=== PATIENT | male | born 1990 | race Caucasian/White ===

== ENCOUNTER → 2017-07-08 | Outpatient (CLI) | payer BC ==
[2017-07-08 16:34] LABS: ADJUSTED CALCIUM 9.1 mg/dL (8.4-10.2); ALBUMIN 4.9 gm/dL (3.5-5.0); BILIRUBIN,TOTAL 1.3 mg/dL (0.0-1.0); CALCIUM 9.8 mg/dL (8.4-10.2); CHOLESTEROL RISK RATIO 2.5; CREATININE, serum 0.82 mg/dL (0.66-1.25); POTASSIUM 4.2 mmol/L (3.4-5.0); TOTAL PROTEIN 7.7 gm/dL (6.4-8.2)
== END ==
LOC: COL.LAB 10:33
PROVIDERS: Nurse Practitioner
DX: Z00.00 Encounter for general adult medical examination without abnormal findings (principal)

== ENCOUNTER → 2018-06-20 | Outpatient (CLI) | payer BC ==
[2018-06-20 17:29] LABS: CALCIUM 9.4 mg/dL (8.4-10.2); CHOLESTEROL RISK RATIO 2.8; CREATININE, serum 0.81 mg/dL (0.66-1.25); POTASSIUM 4.2 mmol/L (3.4-5.0)
== END ==
LOC: COL.LAB 09:13
PROVIDERS: Family Medicine
DX: Z01.89 Encounter for other specified special examinations (principal)

== ENCOUNTER 2018-10-10 07:42 | Outpatient (CLI) | payer BC ==
[~2018-10-10] VITALS: Ht 195.6 cm; Wt 71.2 kg
[2018-10-10 08:03] VITALS: BP 128/92; PULSE 66; TEMP 97.7
[2018-10-10] MEDS ORDERED: CEPHALEXIN500 M1 PO (10:10)
[2018-10-10 10:45] VITALS: BP 121/95; BP 128/95; PULSE 65
--- NOTE | 2018-10-10 12:15 | NUR ---
PT VSS AND [id number] POST LOOP INSERTION. SITE TO LEFT CHEST IS PRESENT WITH DRESSING AND IS C/D/I. PT DENIES PAIN AT THIS TIME. DISCHARGE INSTRUCTIONS REVIEWED AND SIGNED. PT AND ESCORTED OUT SAFELY.
== END 2018-10-10 11:40 | disposition home or self-care (01) ==
LOC: COL.CAR 07:42
DX: I48.0 Paroxysmal atrial fibrillation (principal); I48.92 Unspecified atrial flutter; Z88.1 Allergy status to other antibiotic agents

== ENCOUNTER 2019-04-13 16:37 | Emergency (ER) | payer BC ==
[~2019-04-13] VITALS: Ht 195.6 cm; Wt 72.7 kg
[~2019-04-13 16:37] MED LIST: CEPHALEXIN500 M1 PO
[2019-04-13 16:49] VITALS: BP 129/87; TEMP 98.2
[2019-04-13 17:42] VITALS: PULSE 57
== END 2019-04-13 17:44 | disposition home or self-care (01) ==
LOC: COL.ER 16:37
DX: S50.02XA Contusion of left elbow, initial encounter (principal); W19.XXXA Unspecified fall, initial encounter; W22.8XXA Striking against or struck by other objects, initial encounter; Y92.009 Unspecified place in unspecified non-institutional (private) residence as the place of occurrence of the external cause

== ENCOUNTER 2019-04-21 23:27 | Emergency (ER) | payer BC ==
[~2019-04-21] VITALS: Ht 195.6 cm; Wt 72.7 kg
[2019-04-21 23:32] VITALS: TEMP 97.8
[2019-04-22 06:15] VITALS: BP 119/78; PULSE 62
[2019-04-23] MEDS ORDERED: ASPIRIN 81M81 MG/TA2 PO (00:31)
== END 2019-04-22 06:15 | disposition home or self-care (01) ==
LOC: COL.ER 23:27
DX: R00.1 Bradycardia, unspecified (principal); I48.91 Unspecified atrial fibrillation

== ENCOUNTER 2019-04-23 00:23 | Emergency (ER) | payer BC ==
[~2019-04-23] VITALS: Ht 195.6 cm; Wt 72.7 kg
[2019-04-23 00:27] VITALS: TEMP 98
[2019-04-23] MEDS ORDERED: ASPIRIN 81M81 MG/TA2 PO (00:31)
[2019-04-23 01:10] LABS: BASO % 0.6 % (0.0-2.0); EOS # 0.2 (0.0-0.7); EOS % 3.8 % (0-4.0); GRAN # 1.9 (1.4-6.5); GRAN % 39.1 % (42.2-75.2); HEMATOCRIT 45.9 % (42.0-52.0); HEMOGLOBIN 15.3 g/dl (13.5-18.0); LYMPH # 2.2 (1.2-3.4); LYMPH % 45.5 % (20.0-51.0); MEAN CELL VOLUME 83 fl (80.0-100.0); MEAN CORPUSCULAR HEMOGLOBIN 28 pg (27.0-31.0); MEAN CORPUSCULAR HGB CONC 33 g/dl (33.0-37.0); MEAN PLATELET VOLUME 9.1 fl (7.4-10.4); MONO # 0.5 (0.1-0.6); MONO % 10.8 % (1.7-9.3); PLATELET COUNT 184 K/mm3 (130-400); RED BLOOD COUNT 5.53 M/mm3 (4.20-5.60); REDCELL DISTRIBUTION WIDTH-CV 12.4 % (11.5-14.5)
[2019-04-23 01:21] LABS: ALANINE AMINOTRANSFERASE 16 U/L (21-72); ALBUMIN 4.5 gm/dL (3.5-5.0); ALKALINE PHOSPHATASE 45 U/L (50-136); ANION GAP 10 mmol/L (7-16); AST,SGOT 25 U/L (15-37); BILIRUBIN,TOTAL 1.1 mg/dL (0.0-1.0); BLOOD UREA NITROGEN 13 mg/dL (9-20); CALCIUM 9.6 mg/dL (8.4-10.2); CARBON DIOXIDE 26 mmol/L (22-30); CHLORIDE 104 mmol/L (98-107); CREATININE, serum 0.72 (0.66-1.25); GLUCOSE 89 mg/dL (74-106); INR 1.2 (0.8-3.0); POTASSIUM 3.8 mmol/L (3.4-5.0); PROTHROMBIN TIME 13.5 SECONDS (9.7-12.8); SODIUM 140 mmol/L (137-145); TOTAL PROTEIN 7.4 gm/dL (6.4-8.2)
[2019-04-23 01:31] LABS: D-DIMER < 200.00 ng/mLDDu (200-230)
[2019-04-23 01:33] LABS: TROPONIN-I < 0.012 ng/mL (0.000-0.035)
[2019-04-23 01:38] LABS: PROLACTIN 19.9 ng/mL (3.7-17.9)
[2019-04-23 03:45] VITALS: BP 117/93; PULSE 72
== END 2019-04-23 03:45 | disposition short-term general hospital (02) ==
LOC: COL.ER 00:23
PROVIDERS: Emergency Medicine
DX: R55 Syncope and collapse (principal); I48.91 Unspecified atrial fibrillation; Z79.82 Long term (current) use of aspirin
CPT/HCPCS: J7030